=== PATIENT | male | born 1955 | race Caucasian/White ===

== ENCOUNTER 2017-06-25 00:01 | Outpatient (RCR) | payer MEDICARE, MEDICAID, SELFPAY | END 2017-07-24 | disposition home or self-care (01) | LOC: IOPBV 00:01 | PROVIDERS: ATTEND Psychiatry & Neurology Psychiatry | DX: F20.0 Paranoid schizophrenia (principal) | CPT/HCPCS: 90832; 90853 ==

== ENCOUNTER → 2018-02-08 | Outpatient (CLI) | payer MEDICARE, MEDICAID ==
[2018-02-08 17:22] LABS: HEMOGLOBIN A1C 5.4 % (4.5-6.2)
[2018-02-08 18:17] LABS: CHOL/HDL RATIO 2.5 (4.2-7.3)
== END | disposition home or self-care (01) ==
LOC: LABMN 12:00
PROVIDERS: ATTEND Psychiatry & Neurology Psychiatry
DX: F25.9 Schizoaffective disorder, unspecified (principal); R79.89 Other specified abnormal findings of blood chemistry
CPT/HCPCS: 83036

== ENCOUNTER → 2018-11-29 | Outpatient (CLI) | payer MEDICARE, MEDICAID ==
[2018-11-29 16:08] LABS: CHOL/HDL RATIO 2.6 (4.2-7.3)
== END | disposition home or self-care (01) ==
LOC: LABMN 12:40
PROVIDERS: ATTEND Psychiatry & Neurology Psychiatry
DX: F25.9 Schizoaffective disorder, unspecified (principal); Z79.899 Other long term (current) drug therapy
CPT/HCPCS: 82947; 83036

== ENCOUNTER → 2020-12-24 | Outpatient (CLI) | payer MEDICARE, MEDICAID ==
[2021-01-02 10:37] LABS: CHOL/HDL RATIO 2.4 (4.2-7.3)
== END | disposition home or self-care (01) ==
LOC: LABPV 09:06
PROVIDERS: ATTEND Psychiatry & Neurology Psychiatry
DX: F20.9 Schizophrenia, unspecified (principal); Z79.899 Other long term (current) drug therapy
CPT/HCPCS: 82947; 83036